=== PATIENT | female | born 1945 | race American Indian/Alaskan Native ===

== ENCOUNTER 2016-10-29 14:22 | Outpatient (CLI) | payer MEDICARE ==
--- NOTE | 2016-10-30 11:35 | Mammography Report ---
BILATERAL DIGITAL SCREENING MAMMOGRAM WITH CAD: Comparison study is dated October 27, 2014. FINDINGS: The central right breast asymmetry is stable compared to studies dating back to 2013. A few, scattered microcalcifications in the right breast are stable. No new masses or architectural distortion. IMPRESSION: Stable benign findings. BI-RADS CATEGORY: 2 = Benign ACR BI-RADS MAMMOGRAPHIC CODES: 0 = Needs additional imaging evaluation; 1 = Negative; 2 = Benign; 3 = Probably benign; 4 = Suspicious; 5 = Malignant; 6 = Known biopsy-proven malignancy COMMENT: 1. Dense breast tissue, i.e., adenosis, fibrocystic changes, etc., may obscure an underlying neoplasm. 2. Approximately 10% of cancers are not detected with mammography. 3. A negative mammography report should not delay biopsy if a clinically suspicious mass is present. RECOMMENDATION: Annual screening. COMMENT: Patient follow-up letters are generated in [employer].
== END 2016-10-29 14:23 | disposition home or self-care (01) ==
LOC: MAMMO 14:22
PROVIDERS: ATTEND Obstetrics & Gynecology Gynecology
DX: Z12.31 Encounter for screening mammogram for malignant neoplasm of breast (principal); N95.1 Menopausal and female climacteric states
CPT/HCPCS: 77067; G0202

== ENCOUNTER 2018-10-21 10:25 | Outpatient (CLI) | payer MEDICARE ==
--- NOTE | 2018-10-21 15:01 | Mammography Report ---
BILATERAL DIGITAL SCREENING MAMMOGRAM with CAD : 10/21/18 10:25:00 CLINICAL: Routine screening. COMPARISON:10/29/16, 10/27/14 and 09/17/13 FINDINGS: The breasts are heterogeneously dense, which may obscure small masses.A partially circumscribed right periareolar and inner 1.6 cm mass is unchanged compared to prior exams. No new mass, architectural distortion or suspicious calcifications. IMPRESSION: No mammographic evidence of malignancy. BI-RADS CATEGORY: 2 -- Benign RECOMMENDATION: Routine mammographic screening in one year. COMMENT: Patient follow-up letters are generated by our [employer] application.
== END 2018-10-21 10:26 | disposition home or self-care (01) ==
LOC: MAMMO 10:25
PROVIDERS: ATTEND Internal Medicine
DX: Z12.31 Encounter for screening mammogram for malignant neoplasm of breast (principal)
CPT/HCPCS: 77067